=== PATIENT | male | born 1960 | race Hispanic/Latino ===

== ENCOUNTER 2017-07-05 12:58 | Emergency (ER) | payer OTHER ==
[2017-07-05 13:04] VITALS: RESP 20; O2SAT 96
[2017-07-05] MEDS ORDERED: Multivitamin (MVI) 10 ML, Thiamine 100 MG, Folic Acid 1 MG in Sodium Chloride 0.9% 1,00... IV ONE (13:44)
[2017-07-05 14:01] LABS: BASO # 0.1 K/uL (0.0-0.2); BASO % 0.8 % (0.0-2.0); EOS # 0.1 K/uL (0.0-0.7); EOS % 1.4 % (0.0-4.0); HEMATOCRIT 42.5 % (35.0-51.0); LYMPH # 2.1 K/uL (1.0-4.3); LYMPH % 24.5 % (20.0-40.0); MEAN CELL VOLUME 92.1 fL (80.0-94.0); MEAN CORPUSCULAR HEMOGLOBIN 31.5 pg (27.0-31.0); MEAN CORPUSCULAR HGB CONC 34.2 g/dL (33.0-37.0); MEAN PLATELET VOLUME 7.6 fL (7.2-11.7); MONO # 0.5 K/uL (0.0-0.8); MONO % 5.6 % (0.0-10.0); RED CELL DISTRIBUTION WIDTH 14.5 % (11.5-14.5); WHITE BLOOD COUNT 8.4 K/uL (4.8-10.8)
[2017-07-05 14:22] LABS: ALB/GLOB RATIO 1.6 (1.0-2.1); ALCOHOL SERUM 149 mg/dl (0-10); ALKALINE PHOSPHATASE 66 U/L (38-126); ALT/SGPT 45 U/L (21-72); AST/SGOT 37 U/L (17-59); BILIRUBIN,TOTAL 0.8 mg/dL (0.2-1.3); BLOOD UREA NITROGEN 14 mg/dL (9-20); CALCIUM 8.2 mg/dl (8.6-10.4); CARBON DIOXIDE 26 mmol/L (22-30); CHLORIDE 103 mmol/L (98-107); GFR AFRICAN-AMERICAN > 60; GLUCOSE,RANDOM 116 mg/dL (75-110); POTASSIUM 3.6 mmol/L (3.6-5.2); SODIUM 136 mmol/L (132-148); TOTAL PROTEIN 6.5 g/dL (6.3-8.3)
--- NOTE | 2017-07-05 14:23 | C.PDOC ---
History Of Present Illness 57 y/o M c PMHx alcohol abuse p/w epigastric pain x months. Patient states he gets epigastric pain whenever he eats anything without having alcohol in his system. He states that he either vomits or has loose stool, but his symptoms resolve if he has alcohol in his system. He states that he is attempting to stop drinking but due to these symptoms and also with tremors, he needs to drink again. He states he is interested in detox. He denies fever, hematemesis, dysuria. Time Seen by Provider: 07/05/17 13:15 Chief Complaint (Nursing): GI Problem Past Medical History Vital Signs: Last Vital Signs Temp 98.3 F 07/05/17 17:52 Pulse 86 07/05/17 17:52 Resp 20 07/05/17 17:52 BP 149/80 07/05/17 17:52 Pulse Ox 96 07/05/17 17:52 Family History: States: No Known Family Hx - Social History Hx Alcohol Use: Yes Hx Substance Use: No - Immunization History Hx Tetanus Toxoid Vaccination: No Hx Influenza Vaccination: No Hx Pneumococcal Vaccination: No Review Of Systems Except As Marked, All Systems Reviewed And Found Negative. Constitutional: Negative for: Fever Respiratory: Negative for: Shortness of Breath Physical Exam - Physical Exam Appears: No Acute Distress Skin: Normal Color Head: Normacephalic Eye(s): bilateral: PERRL Oral Mucosa: Moist Neck: Supple Cardiovascular: Rhythm Regular Respiratory: Normal Breath Sounds Gastrointestinal/Abdominal: Soft, No Tenderness, No Distention, No Guarding, No Rebound Extremity: No Tenderness Pulses: Left Radial: Normal, Right Radial: Normal Neurological/Psych: Normal Speech, Normal Cognition ED Course And Treatment - Laboratory Results Result Diagrams: 07/05/17 13:58 07/05/17 13:58 O2 Sat by Pulse Oximetry: 96 Medical Decision Making Medical Decision Making: Crisis called to inquire about detox bed availability. They state no beds available. Patient with unremarkable labs, no vomiting in ED. Encouraged to continue to call for bed availability. Disposition - Disposition Disposition: HOME/ ROUTINE Disposition Time: 16:00 Condition: STABLE Prescriptions: Famotidine/Ca Carb/Mag Hydrox [Pepcid Complete Tablet Chew] 1 each PO BID #[id number] tab.chew Instructions: Alcohol Withdrawal (ED), Epigastric Pain (ED) Forms: [facility] (Japanese) - Clinical Impression Clinical Impression: Epigastric pain
[2017-07-05 17:53] VITALS: BP 149/80; PULSE 86; TEMP 98.3
== END 2017-07-05 17:53 | disposition home or self-care (01) ==
LOC: C.ER 12:58
DX: R10.13 Epigastric pain (principal)
CPT/HCPCS: 80053; 80320; 83690; 85025; 96374; 96375; 99284; J2405; J3411; J7040